=== PATIENT | female | born 1960 | race Caucasian/White ===

== ENCOUNTER → 2023-04-22 | Outpatient (CLI) | payer BC ==
--- NOTE | 2023-04-22 13:41 | Diagnostic Imaging Report ---
INDICATION: Left breast density and questionable left breast architectural distortion. Patient presents for additional views. Correlation is made with outside screening mammogram from 04/09/2023. 2-D and 3-D conventional CC, MLO and mediolateral views of the left breast are obtained. In addition, spot compression CC and ML views left breast were performed. Left breast remains heterogeneously dense. No underlying mass or malignant-appearing microcalcifications are seen. No definite architectural distortion is identified. Densities may represent superimposed tissue. Even so, ultrasound of the upper outer left breast would be recommended. Left axilla is unremarkable. IMPRESSION: Additional views fail to demonstrate a discrete mass or architectural distortion. So, even so, directed sonography interrogation upper outer left breast approximately 5 cm from the nipple is recommended and will be performed today. Dictated by: Dictated on workstation # [id number]
--- NOTE | 2023-04-22 15:05 | Diagnostic Imaging Report ---
INDICATION: Left breast density and questioned architectural distortion. Correlation is made with diagnostic mammogram earlier same day. Sonographic interrogation upper outer left breast was performed. No sonographic abnormality is seen. No solid or cystic mass in the upper outer left breast is identified. There is a small incidental cyst at the 12 o'clock location 2 cm from the nipple measuring approximately 5 mm. IMPRESSION: No sonographic abnormality is seen to account for the mammographic density. Patient may return to routine annual screening mammography. ACR BI-RADS Category 2: Benign findings. Result letter will be mailed to the patient. Note: At least 10% of breast cancer is not imaged by mammography. BI-RADS Category 2 Dictated by: Dictated on workstation # [id number]
== END ==
LOC: RAD 12:45
PROVIDERS: ATTEND Surgery
DX: N63.20 Unspecified lump in the left breast, unspecified quadrant (principal); R92.2 Inconclusive mammogram
CPT/HCPCS: 76641; 77065; G0279